=== PATIENT | female | born 1960 | race Hispanic/Latino ===

== ENCOUNTER 2021-04-30 02:39 | Inpatient (IN) | payer OTHER ==
[2021-04-30] VITALS (19 sets, daily range): BP systolic 145–178; BP diastolic 69–94
[~2021-04-30] VITALS: Ht 157.5 cm; Wt 78.0 kg
[2021-04-30] MEDS ORDERED: KETOROLAC 30MG VIAL (30MG/ML) ONE (03:52)
[2021-04-30] MEDS ORDERED: ORPHENADRINE CITRATE 30 MG/ML ML ONE (03:52)
[2021-04-30] MEDS ORDERED: KETOROLAC 30MG VIAL (30MG/ML) IV ONE (04:00)
[2021-04-30] MEDS ORDERED: ORPHENADRINE CITRATE 30 MG/ML ML IV ONE (04:00)
[2021-04-30 05:26] LABS: ABG BASE EXCESS 2.2 mmol/L (-2.0-3.0); ABG HCO3 24.4 mmol/L (21.0-28.0); ABG OXYGEN SATURATION 87.2 % (95.0-99.0); ABG PCO2 31 mmHg (32-45)
[2021-04-30 05:34] LABS: BASOPHILS % (AUTO) 0.3 % (0.0-5.0); EOSINOPHILS % (AUTO) 0.9 % (0.0-8.0); HEMATOCRIT 29.3 % (36-48); LYMPHOCYTES % (AUTO) 10.9 % (21.0-51.0); MEAN CORPUSCULAR HEMOGLOBIN 26.1 pg (27.0-33.0); MEAN CORPUSCULAR HGB CONC 32.1 g/dL (32.0-36.0); MEAN CORPUSCULAR VOLUME 81.4 fL (79-99); MONOCYTES % (AUTO) 7.7 % (3.0-13.0); NEUTROPHILS % (AUTO) 79.8 % (40.0-77.0); PLATELET COUNT (AUTO) 140 K/uL (130-400); RED CELL DISTRIBUTION WIDTH 20.3 % (11.0-15.5); WHITE BLOOD COUNT (AUTO) 10.6 K/uL (4.8-10.8)
[2021-04-30 05:40] LABS: CREATININE 4.5 mg/dL (0.5-1.5); POTASSIUM 3.3 mmol/L (3.5-5.1)
[2021-04-30 05:44] LABS: ALBUMIN 3.6 g/dL (3.5-5.0); BILIRUBIN,TOTAL 0.8 mg/dL (0.2-1.0); TOTAL PROTEIN, SERUM 7.3 g/dL (6.0-8.3)
[2021-04-30 05:54] LABS: B-TYPE NATRIURETIC PEPTIDE 1510 pg/mL (0-100)
[2021-04-30] MEDS ORDERED: CEFTRIAXONE 1G VIAL IVP ONE (06:30)
[2021-04-30] MEDS ORDERED: 0.9% NACL 250ML IVPB ONE (06:30)
[2021-04-30] MEDS ORDERED: AZITHROMYCIN 500MG VIAL IVPB ONE (06:30)
[2021-04-30] MEDS ORDERED: AZITHROMYCIN 500MG+NS 250ML IV SCH ×2 (07:00→07:31)
[2021-04-30] MEDS ORDERED: AZITHROMYCIN 500MG VIAL IVPB SCH (07:00)
[2021-04-30] MEDS ORDERED: CEFTRIAXONE 1G VIAL IV SCH (07:00)
[2021-04-30] MEDS ORDERED: ACETAMINOPHEN 325 MG TAB PO PRN ×2 (07:00)
[2021-04-30] MEDS ORDERED: IPRATROPIUM/ALBUTEROL SULFATE 3 ML SOLUTION IH PRN (07:00)
[2021-04-30] MEDS ORDERED: 0.9% NACL 250ML IVPB SCH (07:00)
[2021-04-30] MEDS ORDERED: ONDANSETRON 4MG INJ IV PRN (07:00)
[2021-04-30] MEDS ORDERED: LACTULOSE 20 GM/30 ML UDCUP PO PRN (07:00)
[2021-04-30] MEDS ORDERED: 0.9% NACL 250ML 250 ML IV SCH (07:00)
[2021-04-30] MEDS: INSULIN HUMULIN R 100 UNIT/ML 3ML SQ SCH ×4 (07:30→21:00)
[2021-04-30] MEDS ORDERED: COMPOUND PO MISCELLANEOUS 1 EACH MISC MISC PRN (08:00)
[2021-04-30] MEDS ORDERED: OSELTAMIVIR PHOSPHATE 75 MG CAP PO SCH (09:00)
[2021-04-30] MEDS: 0.9% NACL 250ML 250 ML IV SCH (09:08)
[2021-04-30] MEDS: LIDOCAINE 5% TOPICAL PATCH TP SCH (09:09)
[2021-04-30] MEDS: HEPARIN 5,000 UNIT VIAL SQ SCH ×2 (09:11→19:29)
[2021-04-30] MEDS: OSELTAMIVIR PHOSPHATE 300 MG, WATER FOR INJECTION,STERILE 10 ML, COMPOUNDING VEHICLE SF... PO SCH ×3 (09:16)
[2021-04-30] MEDS: HYDROMORPHONE 0.5 MG SYG (0.5MG/0.5ML) IVP PRN ×3 (09:25→21:11)
[2021-04-30] MEDS ORDERED: KETOROLAC 15MG/ML VIAL (15MG/ML) ONE (13:57)
[2021-04-30] MEDS: KETOROLAC 15MG/ML VIAL (15MG/ML) IV SCH ×2 (14:00→19:53)
[2021-04-30] MEDS: PHARMACY COMMUNICATION MISC SCH ×3 (14:30→22:31)
[2021-04-30] MEDS ORDERED: HEPARIN 5,000 UNIT VIAL ONE (16:03)
[2021-04-30] MEDS ORDERED: ROSU20TA31 PO (19:46)
[2021-04-30] MEDS ORDERED: FURO40TA7 PO (19:46)
[2021-04-30] MEDS ORDERED: NIFE60TA81 PO (19:46)
[2021-04-30] MEDS ORDERED: LISI40TA9 PO (19:46)
[2021-04-30] MEDS ORDERED: DICL100T85 PO (19:46)
[2021-04-30] MEDS ORDERED: FOLI0.8T22 PO (19:46)
[2021-04-30] MEDS ORDERED: CARV12.580 PO (19:46)
[2021-05-01] VITALS (10 sets, daily range): BP systolic 133–192; BP diastolic 62–101
[2021-05-01] MEDS: PHARMACY COMMUNICATION MISC SCH ×2 (02:24→05:44)
[2021-05-01] MEDS ORDERED: HYDRALAZINE 20MG/ML VIAL IV PRN (05:30)
[2021-05-01] MEDS: HYDROMORPHONE 0.5 MG SYG (0.5MG/0.5ML) IVP PRN ×3 (05:44→20:53)
[2021-05-01] MEDS: INSULIN HUMULIN R 100 UNIT/ML 3ML SQ SCH ×4 (07:30→20:40)
[2021-05-01] MEDS: 0.9% NACL 250ML 250 ML IV SCH (07:31)
[2021-05-01 08:27] LABS: BASOPHILS % (AUTO) 0.2 % (0.0-5.0); HEMATOCRIT 29.1 % (36-48); LYMPHOCYTES % (AUTO) 8.4 % (21.0-51.0); MEAN CORPUSCULAR HGB CONC 32.3 g/dL (32.0-36.0); MEAN CORPUSCULAR VOLUME 80.6 fL (79-99); PLATELET COUNT (AUTO) 126 K/uL (130-400); RED BLOOD CELL COUNT(AUTO) 3.61 MIL/uL (4.00-5.50); RED CELL DISTRIBUTION WIDTH 19.9 % (11.0-15.5); WHITE BLOOD COUNT (AUTO) 8.4 K/uL (4.8-10.8)
[2021-05-01 08:47] LABS: CREATININE 4.7 mg/dL (0.5-1.5); POTASSIUM 3.5 mmol/L (3.5-5.1)
[2021-05-01] MEDS: OSELTAMIVIR PHOSPHATE 300 MG, WATER FOR INJECTION,STERILE 10 ML, COMPOUNDING VEHICLE SF... PO SCH ×3 (09:13)
[2021-05-01] MEDS: LIDOCAINE 5% TOPICAL PATCH TP SCH (09:13)
[2021-05-01] MEDS ORDERED: FUROSEMIDE 40 MG TABLET PO SCH (10:49)
[2021-05-01] MEDS: CARVEDILOL 12.5 MG TABLET PO SCH ×2 (11:20→20:39)
[2021-05-01] MEDS: LISINOPRIL 40 MG TABLET PO SCH (11:20)
[2021-05-01] MEDS: Vitamin B Complex/Vit C/Folic Acid PO SCH (11:21)
[2021-05-01] MEDS: NIFEDIPINE ER 30 MG TAB PO SCH ×2 (11:25→20:39)
[2021-05-01] MEDS: HEPARIN 5,000 UNIT VIAL SQ SCH ×2 (11:36→20:38)
[2021-05-01] MEDS ORDERED: MINOXIDIL 2.5 MG TAB PO SCH (12:30)
[2021-05-02] VITALS (22 sets, daily range): BP systolic 122–173; BP diastolic 52–98
[2021-05-02] MEDS: PHARMACY COMMUNICATION MISC SCH ×3 (02:30→10:30)
[2021-05-02] MEDS: HYDROMORPHONE 0.5 MG SYG (0.5MG/0.5ML) IVP PRN ×3 (03:39→17:26)
[2021-05-02 03:44] LABS: BASOPHILS % (AUTO) 0.3 % (0.0-5.0); EOSINOPHILS % (AUTO) 1.4 % (0.0-8.0); HEMATOCRIT 27.9 % (36-48); MEAN CORPUSCULAR HEMOGLOBIN 26.1 pg (27.0-33.0); MEAN CORPUSCULAR HGB CONC 32.6 g/dL (32.0-36.0); MEAN CORPUSCULAR VOLUME 80.2 fL (79-99); MONOCYTES % (AUTO) 7.4 % (3.0-13.0); NEUTROPHILS % (AUTO) 77.6 % (40.0-77.0); PLATELET COUNT (AUTO) 142 K/uL (130-400); RED BLOOD CELL COUNT(AUTO) 3.48 MIL/uL (4.00-5.50); RED CELL DISTRIBUTION WIDTH 19.8 % (11.0-15.5); WHITE BLOOD COUNT (AUTO) 7.2 K/uL (4.8-10.8)
[2021-05-02 03:52] LABS: CREATININE 6.4 mg/dL (0.5-1.5); POTASSIUM 3.1 mmol/L (3.5-5.1)
[2021-05-02] MEDS: INSULIN HUMULIN R 100 UNIT/ML 3ML SQ SCH ×4 (07:21→20:24)
[2021-05-02] MEDS: NIFEDIPINE ER 30 MG TAB PO SCH ×2 (09:00→20:23)
[2021-05-02] MEDS ORDERED: AZITHROMYCIN 500MG VIAL IVPB SCH (09:00)
[2021-05-02] MEDS ORDERED: 0.9% NACL 250ML IVPB SCH (09:00)
[2021-05-02] MEDS: CARVEDILOL 12.5 MG TABLET PO SCH ×2 (09:00→20:24)
[2021-05-02] MEDS ORDERED: HEPARIN 5,000 UNIT VIAL SQ SCH (09:00)
[2021-05-02] MEDS: 0.9% NACL 250ML 250 ML IV SCH ×2 (09:00→09:35)
[2021-05-02] MEDS: Vitamin B Complex/Vit C/Folic Acid PO SCH (09:34)
[2021-05-02] MEDS: OSELTAMIVIR PHOSPHATE 300 MG, WATER FOR INJECTION,STERILE 10 ML, COMPOUNDING VEHICLE SF... PO SCH ×3 (09:34)
[2021-05-02] MEDS: LIDOCAINE 5% TOPICAL PATCH TP SCH (09:35)
[2021-05-02] MEDS: AZITHROMYCIN 500MG+NS 250ML IV SCH (09:35)
[2021-05-02] MEDS: HEPARIN 5,000 UNIT VIAL SQ SCH ×2 (09:35→21:00)
[2021-05-02] MEDS ORDERED: 0.9%NACL 1000ML 1,000 ML IV PRN (16:30)
[2021-05-02] MEDS: MINOXIDIL 2.5 MG TAB PO SCH (19:00)
[2021-05-02] MEDS: LISINOPRIL 40 MG TABLET PO SCH (20:23)
[2021-05-02] MEDS: HEPARIN 5,000 UNIT VIAL IJ PRN (20:45)
[2021-05-03] MEDS: HYDROMORPHONE 0.5 MG SYG (0.5MG/0.5ML) IVP PRN ×4 (00:25→23:37)
[2021-05-03 03:59] VITALS: BP 118/48
[2021-05-03 04:16] LABS: BASOPHILS % (AUTO) 0.3 % (0.0-5.0); EOSINOPHILS % (AUTO) 1.8 % (0.0-8.0); HEMATOCRIT 28.3 % (36-48); LYMPHOCYTES % (AUTO) 15.7 % (21.0-51.0); MEAN CORPUSCULAR HEMOGLOBIN 26.3 pg (27.0-33.0); MEAN CORPUSCULAR HGB CONC 32.5 g/dL (32.0-36.0); MEAN CORPUSCULAR VOLUME 80.9 fL (79-99); MONOCYTES % (AUTO) 8.6 % (3.0-13.0); NEUTROPHILS % (AUTO) 73.5 % (40.0-77.0); PLATELET COUNT (AUTO) 153 K/uL (130-400); RED CELL DISTRIBUTION WIDTH 19.4 % (11.0-15.5); WHITE BLOOD COUNT (AUTO) 7.1 K/uL (4.8-10.8)
[2021-05-03 04:31] LABS: POTASSIUM 3.3 mmol/L (3.5-5.1)
[2021-05-03] MEDS: INSULIN HUMULIN R 100 UNIT/ML 3ML SQ SCH ×4 (06:10→20:56)
[2021-05-03 07:50] VITALS: BP 142/69
[2021-05-03] MEDS: 0.9% NACL 250ML 250 ML IV SCH ×2 (09:00→10:20)
[2021-05-03] MEDS: LIDOCAINE 5% TOPICAL PATCH TP SCH (10:17)
[2021-05-03] MEDS: AZITHROMYCIN 500MG+NS 250ML IV SCH (10:20)
[2021-05-03] MEDS: NIFEDIPINE ER 30 MG TAB PO SCH ×2 (10:21→20:55)
[2021-05-03] MEDS: MINOXIDIL 2.5 MG TAB PO SCH (10:21)
[2021-05-03] MEDS: LISINOPRIL 40 MG TABLET PO SCH (10:21)
[2021-05-03] MEDS: CARVEDILOL 12.5 MG TABLET PO SCH ×2 (10:22→20:56)
[2021-05-03] MEDS: Vitamin B Complex/Vit C/Folic Acid PO SCH (10:22)
[2021-05-03] MEDS: OSELTAMIVIR PHOSPHATE 300 MG, WATER FOR INJECTION,STERILE 10 ML, COMPOUNDING VEHICLE SF... PO SCH ×3 (10:40)
[2021-05-03] MEDS: HEPARIN 5,000 UNIT VIAL SQ SCH ×2 (10:41→21:59)
[2021-05-03 11:26] VITALS: BP 119/75
[2021-05-03 16:39] VITALS: BP 122/56
[2021-05-03 19:22] VITALS: BP 124/56
[2021-05-03 23:57] VITALS: BP 122/60
[2021-05-04] VITALS (18 sets, daily range): BP systolic 134–176; BP diastolic 56–87
[2021-05-04] MEDS: HYDROMORPHONE 0.5 MG SYG (0.5MG/0.5ML) IVP PRN ×2 (06:19→16:41)
[2021-05-04] MEDS: INSULIN HUMULIN R 100 UNIT/ML 3ML SQ SCH ×3 (07:30→16:30)
[2021-05-04] MEDS: CARVEDILOL 12.5 MG TABLET PO SCH (09:00)
[2021-05-04] MEDS: HEPARIN 5,000 UNIT VIAL SQ SCH (09:00)
[2021-05-04] MEDS: Vitamin B Complex/Vit C/Folic Acid PO SCH (09:00)
[2021-05-04] MEDS: MINOXIDIL 2.5 MG TAB PO SCH (09:00)
[2021-05-04] MEDS: NIFEDIPINE ER 30 MG TAB PO SCH (09:00)
[2021-05-04] MEDS: LISINOPRIL 40 MG TABLET PO SCH (09:00)
[2021-05-04] MEDS: LIDOCAINE 5% TOPICAL PATCH TP SCH (09:00)
[2021-05-04] MEDS: 0.9% NACL 250ML 250 ML IV SCH ×2 (09:30→12:43)
[2021-05-04] MEDS: AZITHROMYCIN 500MG+NS 250ML IV SCH (12:43)
[2021-05-04] MEDS: OSELTAMIVIR PHOSPHATE 300 MG, WATER FOR INJECTION,STERILE 10 ML, COMPOUNDING VEHICLE SF... PO SCH ×3 (12:45)
[2021-05-04] MEDS ORDERED: MINO2.5 PO (18:44)
[2021-05-04] MEDS ORDERED: GABA-529 PO (18:44)
[2021-05-04] MEDS ORDERED: ACET1TAB25 PO (18:44)
[2021-05-04] MEDS ORDERED: OSEL45CA PO (18:44)
[2021-05-04] MEDS: HEPARIN 5,000 UNIT VIAL IJ PRN (20:03)
== END 2021-05-04 21:57 | disposition home or self-care (01) | DRG 193 ==
LOC: EDH 04:04 → EDHIP 06:44 → 4CH 05-01 06:47
PROVIDERS: ADMIT Hospitalist; ATTEND Hospitalist
PROC: 5A1D70Z Performance of Urinary Filtration, Intermittent, Less than 6 Hours Per Day (ICD-10-PCS; principal; 2021-04-30)
PROC: 5A1D70Z Performance of Urinary Filtration, Intermittent, Less than 6 Hours Per Day (ICD-10-PCS; 2021-05-03)
PROC: 5A1D70Z Performance of Urinary Filtration, Intermittent, Less than 6 Hours Per Day (ICD-10-PCS; 2021-05-04)
DX: J10.00 Influenza due to other identified influenza virus with unspecified type of pneumonia (principal); J96.01 Acute respiratory failure with hypoxia; N18.6 End stage renal disease; I12.0 Hypertensive chronic kidney disease with stage 5 chronic kidney disease or end stage renal disease; J90 Pleural effusion, not elsewhere classified; I31.3 Pericardial effusion (noninflammatory); R79.89 Other specified abnormal findings of blood chemistry; Z99.2 Dependence on renal dialysis; E11.22 Type 2 diabetes mellitus with diabetic chronic kidney disease; M19.90 Unspecified osteoarthritis, unspecified site; E78.5 Hyperlipidemia, unspecified; E87.70 Fluid overload, unspecified; D50.9 Iron deficiency anemia, unspecified; E66.9 Obesity, unspecified; Z68.33 Body mass index [BMI] 33.0-33.9, adult; E78.00 Pure hypercholesterolemia, unspecified; I27.20 Pulmonary hypertension, unspecified; J18.0 Bronchopneumonia, unspecified organism; K76.0 Fatty (change of) liver, not elsewhere classified; Z20.822 Contact with and (suspected) exposure to COVID-19; Z90.710 Acquired absence of both cervix and uterus; G89.29 Other chronic pain
CPT/HCPCS: 36415; 36600; 71045; 72131; 73503; 78580; 80048; 80053; 82803; 82948; 83605; 83690; 83880; 84145; 84484; 85025; 85378; 87040; 87635; 87804; 90935; 93005; 93306; 93356; 93970; 97039; 99291; A9540; C9803; G0378; J0360; J0456; J0696; J1170; J1644; J1885; J7050